=== PATIENT | male | born 1995 | race Caucasian/White ===

== ENCOUNTER 2021-05-10 02:23 | Inpatient (IN) | payer OTHER ==
[2021-05-10 03:03] VITALS: BMI 39.9
[2021-05-10] MEDS ORDERED: ACETAMINOPHEN 1000 MG/100 ML VIAL (NON FORMULARY) IVPB ONE (03:08)
[2021-05-10] MEDS ORDERED: SODIUM CHLORIDE 0.9% 500 ML INFUS.BAG IV ONE (03:09)
[2021-05-10] MEDS ORDERED: CLINDAMYCIN 600MG PREMIX IVPB 600 MG/50 ML BAG IVPB ONE ×3 (03:09→08:28)
[2021-05-10] MEDS ORDERED: ACETAMINOPHEN INJECTION 100 ML IVPB ONE (03:25)
[2021-05-10 03:35] LABS: HEMATOCRIT 44.7 % (35.4-49); HEMOGLOBIN 15.4 GM/dL (11.7-16.9); MCH 31.7 pg (25.7-33.7); MCHC 34.4 g/dl (32.0-35.9); MEAN CELL VOLUME 92.1 fl (80-96); MEAN PLT VOLUME 8.8 fl (7.5-11.1); PLATELET COUNT 182 10^3/uL (134-434); RBC 4.86 M/mm3 (4.00-5.60); WHITE BLOOD COUNT 20.2 K/mm3 (4.0-10.0)
[2021-05-10 03:48] LABS: INR 1.37 (0.83-1.09); PROTHROMBIN TIME (PATIENT) 16.7 SEC (9.7-13.0)
[2021-05-10 03:51] LABS: ACTIVATED PTT 33.1 SECONDS (25.2-36.5)
[2021-05-10 03:53] LABS: CHLORIDE 102 mmol/L (98-107); SODIUM 135 mmol/L (136-145)
[2021-05-10 03:55] LABS: CALCIUM 8.7 mg/dL (8.5-10.1)
[2021-05-10 03:56] LABS: ANION GAP 9 MMOL/L (8-16); CO2 25 mmol/L (21-32); GLUCOSE,RANDOM 111 mg/dL (74-106)
[2021-05-10 03:59] LABS: SGOT/AST 12 U/L (15-37); SGPT/ALT 39 U/L (13-61)
[2021-05-10 04:01] LABS: BILIRUBIN,TOTAL 2.9 mg/dL (0.2-1); TOT PROT 7.3 g/dl (6.4-8.2)
[2021-05-10 04:02] LABS: ALK PHOS 80 U/L (45-117)
[2021-05-10 04:42] LABS: ALBUMIN 3.7 g/dl (3.4-5.0)
[2021-05-10 05:21] LABS: EPI CELLS 3 /uL (0-25.1); HYALINE CASTS 0 /uL (0-3.1); PH,URINE 7.5 (5.0-8.0); URINE APPEARANCE CLEAR; URINE BACTERIA 7 /uL (0-1359); URINE BILIRUBIN NEGATIVE (NEGATIVE); URINE COLOR DK YELLOW; URINE GLUCOSE (UA) NEGATIVE (NEGATIVE); URINE KETONE NEGATIVE (NEGATIVE); URINE LEUK ESTERASE NEGATIVE (NEGATIVE); URINE NITRITE NEGATIVE (NEGATIVE); URINE PROTEIN 2+ (NEGATIVE); URINE RBC 12 /uL (0-23.9); URINE UROBILINOGEN 4.0 E.U/dl mg/dL (0.2-1.0); URINE WBC 3 /uL (0-25.8)
[2021-05-10 05:34] LABS: ANISOCYTOSIS 1+; MACROCYTOSIS 0; PLATELET ESTIMATE NORMAL
[2021-05-10] MEDS ORDERED: ACETAMINOPHEN 325 MG TABLET (FP) PO PRN ×2 (05:42→12:48)
[2021-05-10] MEDS ORDERED: ACETAMINOPHEN 325 MG TABLET (FP) ONE (08:28)
[2021-05-10] MEDS ORDERED: CLINDAMYCIN 600MG PREMIX IVPB 600 MG/50 ML BAG IVPB SCH ×3 (09:00→15:00)
[2021-05-10 09:20] LABS: HEMATOCRIT 45.4 % (35.4-49); HEMOGLOBIN 15.8 GM/dL (11.7-16.9); MCH 32.4 pg (25.7-33.7); MCHC 34.9 g/dl (32.0-35.9); MEAN CELL VOLUME 93.1 fl (80-96); MEAN PLT VOLUME 9.3 fl (7.5-11.1); PLATELET COUNT 188 10^3/uL (134-434); RBC 4.87 M/mm3 (4.00-5.60); WHITE BLOOD COUNT 19.5 K/mm3 (4.0-10.0)
[2021-05-10 09:47] LABS: BLOOD UREA NITROGEN 9.7 mg/dL (7-18); MAGNESIUM 2.2 mg/dL (1.8-2.4)
[2021-05-10 09:49] LABS: CALCIUM 8.7 mg/dL (8.5-10.1)
[2021-05-10 09:50] LABS: CREATININE 0.7 mg/dL (0.55-1.3)
[2021-05-10 09:53] LABS: PHOSPHOROUS 3.2 mg/dL (2.5-4.9)
[2021-05-10] MEDS ORDERED: ENOXAPARIN NA (PORCINE) 40 MG/0.4 ML DISP.SYRIN SQ SCH (10:00)
[2021-05-10] MEDS ORDERED: LIDOCAINE HCL/PF 2% SDV 5ML VIAL ONE ×2 (11:06→11:46)
[2021-05-10] MEDS ORDERED: MIDAZOLAM HCL 2 MG/2 ML SINGLE DOSE VIAL ONE (11:07)
[2021-05-10] MEDS ORDERED: PROPOFOL 20 ML ONE ×3 (11:07)
[2021-05-10] MEDS ORDERED: SUCCINYLCHOLINE CHLORIDE 200 MG/10 ML SYRINGE ONE (11:07)
[2021-05-10] MEDS ORDERED: KETOROLAC TROMETHAMINE 30 MG/1 ML VIAL ONE (11:46)
[2021-05-10] MEDS ORDERED: DEXAMETHASONE SOD PHOSPHATE 4 MG/1 ML VIAL ONE (11:46)
[2021-05-10] MEDS ORDERED: ONDANSETRON 4 MG/2 ML VIAL IVPUSH PRN ×2 (12:21→12:48)
[2021-05-10] MEDS ORDERED: PROMETHAZINE HCL 25 MG/1 ML VIAL IVPUSH PRN ×2 (12:21→12:48)
[2021-05-10] MEDS ORDERED: oxyCODONE HCL 5 MG TABLET PO PRN ×4 (12:21→12:48)
[2021-05-10] MEDS ORDERED: VANCOMYCIN HCL 1,500 MG/500 ML BAG IVPB SCH (15:15)
[2021-05-10] MEDS ORDERED: VANCOMYCIN IVPB SCH (21:00)
[2021-05-10] MEDS: VANCOMYCIN IVPB SCH (22:23)
[2021-05-11] MEDS: VANCOMYCIN IVPB SCH (09:00)
[2021-05-11 09:28] LABS: BASO % 0.3 % (0-2.0); HEMATOCRIT 41.6 % (35.4-49); HEMOGLOBIN 14.7 GM/dL (11.7-16.9); MCH 32.7 pg (25.7-33.7); MCHC 35.3 g/dl (32.0-35.9); MEAN CELL VOLUME 92.6 fl (80-96); MEAN PLT VOLUME 9.3 fl (7.5-11.1); MONO % 6.6 % (3.8-10.2); NEUT % 84.1 % (42.8-82.8); PLATELET COUNT 227 10^3/uL (134-434); RBC 4.49 M/mm3 (4.00-5.60); RDW 13.1 % (11.9-15.9); WHITE BLOOD COUNT 18.8 K/mm3 (4.0-10.0)
[2021-05-11 09:35] LABS: INR 1.27 (0.83-1.09); PROTHROMBIN TIME (PATIENT) 15.5 SEC (9.7-13.0)
[2021-05-11 10:02] LABS: CREATININE 0.8 mg/dL (0.55-1.3)
[2021-05-11 10:03] LABS: TOT PROT 6.9 g/dl (6.4-8.2)
[2021-05-11 10:08] LABS: BLOOD UREA NITROGEN 12.6 mg/dL (7-18)
[2021-05-11 10:15] LABS: ALBUMIN 3.2 g/dl (3.4-5.0); BILIRUBIN,DIRECT 0.3 mg/dL (0.0-0.2); BILIRUBIN,TOTAL 0.9 mg/dL (0.2-1)
[2021-05-11] MEDS: ENOXAPARIN NA (PORCINE) 40 MG/0.4 ML DISP.SYRIN SQ SCH (10:31)
[2021-05-11] MEDS: VANCOMYCIN PREMIX 1.5 GM 1,500 MG/300 ML BAG IVPB SCH ×2 (10:34→21:13)
[2021-05-11 15:40] LABS: HIV INTERPRETATION NEGATIVE (NEGATIVE)
[2021-05-11] MEDS ORDERED: DEXTROSE 5%-WATER 100 ML IVPB ONE (18:44)
[2021-05-11] MEDS: CEFTRIAXONE 2 GM in DEXTROSE 5%-WATER 2 GM/100 ML BAG IVPB SCH (18:49)
[2021-05-11] MEDS ORDERED: PT OWN MED DRAWER 7, Y5N ONE (21:11)
[2021-05-12] MEDS ORDERED: PT OWN MED DRAWER 7, Y5N ONE (09:30)
[2021-05-12] MEDS ORDERED: DEXTROSE 5%-WATER 100 ML IVPB ONE (09:30)
[2021-05-12 09:31] LABS: BASO % 0.5 % (0-2.0); EOS % 0.6 % (0-4.5); HEMATOCRIT 42.4 % (35.4-49); HEMOGLOBIN 14.8 GM/dL (11.7-16.9); LYMPH % 30.9 % (8-40); MCH 32.8 pg (25.7-33.7); MEAN CELL VOLUME 93.6 fl (80-96); MEAN PLT VOLUME 9.6 fl (7.5-11.1); MONO % 8.3 % (3.8-10.2); NEUT % 59.7 % (42.8-82.8); PLATELET COUNT 256 10^3/uL (134-434); RBC 4.53 M/mm3 (4.00-5.60); RDW 13.1 % (11.9-15.9)
[2021-05-12 09:38] VITALS: TEMP 98.3
[2021-05-12] MEDS: ENOXAPARIN NA (PORCINE) 40 MG/0.4 ML DISP.SYRIN SQ SCH (09:39)
[2021-05-12] MEDS: CEFTRIAXONE 2 GM in DEXTROSE 5%-WATER 2 GM/100 ML BAG IVPB SCH (09:39)
[2021-05-12] MEDS: VANCOMYCIN PREMIX 1.5 GM 1,500 MG/300 ML BAG IVPB SCH (10:04)
[2021-05-12 10:12] LABS: CALCIUM 8.8 mg/dL (8.5-10.1)
[2021-05-12 10:13] LABS: ALBUMIN 3.3 g/dl (3.4-5.0); BLOOD UREA NITROGEN 11.8 mg/dL (7-18)
[2021-05-12 10:16] LABS: CREATININE 0.7 mg/dL (0.55-1.3)
[2021-05-12 10:17] LABS: TOT PROT 6.9 g/dl (6.4-8.2)
[2021-05-12 10:25] LABS: BILIRUBIN,TOTAL 0.7 mg/dL (0.2-1)
[2021-05-12 14:48] VITALS: BP 137/82; PULSE 70
== END 2021-05-12 17:45 | disposition home or self-care (01) | DRG 720 ==
LOC: JER 02:23 → JERBED 04:33 → J6S 10:19
PROVIDERS: ADMIT Internal Medicine; ATTEND Internal Medicine
PROC: 0X950ZX Drainage of Left Axilla, Open Approach, Diagnostic (ICD-10-PCS; principal; 2021-05-10 13:30)
DX: A41.9 Sepsis, unspecified organism (principal); L02.414 Cutaneous abscess of left upper limb; L02.412 Cutaneous abscess of left axilla; E66.9 Obesity, unspecified; R31.9 Hematuria, unspecified; Z68.39 Body mass index [BMI] 39.0-39.9, adult; R80.9 Proteinuria, unspecified; R16.0 Hepatomegaly, not elsewhere classified; L83 Acanthosis nigricans
CPT/HCPCS: 36415; 71045-TC-FY; 76705-TC; 76775-TC; 80048; 80053; 80061; 80076; 81003; 82570; 83036; 83605; 83735; 84100; 84156; 84484; 85025; 85027; 85610; 85730; 87040; 87070; 87086; 87186; 87205; 87389; 93005; 93010; 94760; 99285-25; C9803; G0480; J0131; U0003; U0005